=== PATIENT | female | born 1995 | race Caucasian/White ===

== ENCOUNTER 2019-02-16 09:15 | Emergency (ER) | payer BC, MEDICAID ==
[~2019-02-16] VITALS: Ht 167.6 cm; Wt 69.4 kg
[2019-02-16 09:18] VITALS: BP 109/67
[2019-02-16] MEDS ORDERED: ACETAMINOPHEN EXTRA STRENGTH 500 MG TAB PO ONE (09:25)
[2019-02-16] MEDS ORDERED: IBUPROFEN 400 MG TAB PO ONE (09:25)
[2019-02-16 10:32] VITALS: BP 109/67
== END 2019-02-16 10:55 | disposition home or self-care (01) ==
LOC: MED 09:15
DX: J10.1 Influenza due to other identified influenza virus with other respiratory manifestations (principal)
CPT/HCPCS: 71046; 87804; 99284